=== PATIENT | female | born 1975 | race Two or more races ===

== ENCOUNTER 2016-10-24 12:28 | Emergency (ER) | payer MEDICAID ==
[~2016-10-24] VITALS: Ht 177.8 cm; Wt 162.8 kg
[~2016-10-24 12:28] MED LIST: AML5T PO; BENA40TA2 PO; GABA300C8 PO; MET50T PO; METF-316 PO; OMEP20CA5 PO
[2016-10-24] MEDS ORDERED: ACETAMINOPHEN 325 MG TAB PO ONE ×2 (15:57→16:00)
[2016-10-24 16:45] LABS: Basophils # (auto) 0.1 uL; Basophils % (auto) 0.5 % (0.0-2.0); DEFINITIVE VIEW TRANSMISSION; Eosinophils # (auto) 0.1 uL; Eosinophils % (auto) 0.6 % (0.0-7.0); Hematocrit 41.2 % (36.0-46.0); Hemoglobin 12.7 g/dL (12.2-16.2); Lymphocytes # (auto) 2.2 uL; Mean Corpuscular Hemoglobin 23.2 pg (28.0-32.0); Mean Corpuscular Hgb Conc. 30.8 g/dL (32.0-36.0); Mean Corpuscular Volume 75.3 fL (80.0-100.0); Mean Platelet Volume 9.6 fL (7.4-10.4); Monocytes # (auto) 0.5 uL; Monocytes % (auto) 4.2 % (0.0-12.0); Neutrophils # (auto) 9.3 uL; Neutrophils % (auto) 76.7 % (37.0-80.0); Platelet Count (auto) 247 10^3/uL (140-450); Red Cell Distribution Width 17.9 % (11.6-16.0); White Blood Cell 12.2 10^3/uL (4.4-10.8)
[2016-10-24 17:00] LABS: INR 1.02 (0.9-1.15); Partial Thromboplastin Time 24.9 sec (22.64-33.71); Prothrombin Time 10.5 sec (9.37-12.3)
[2016-10-24 17:02] LABS: Urine Bilirubin Negative (Negative); Urine Blood Negative /uL (Negative); Urine Color Yellow (Yellow); Urine Ketone Negative (Negative); Urine Nitrite Negative (Negative); Urine RBC <1 /hpf (0 - 4); Urine Squamous Epithelial Cell FEW /hpf (<5); Urine Urobilinogen Normal (Negative); Urine pH 6.5 (5.0-8.0)
[2016-10-24 17:04] LABS: Urine Glucose 4+ mg/dL (Normal)
[2016-10-24 17:05] LABS: Albumin 3.2 g/dL (3.4-5.0); BUN/Creatinine Ratio 7.5; Calcium 8.2 mg/dL (8.5-10.1)
[2016-10-24 17:07] LABS: Bilirubin, Total 0.3 mg/dL (0.2-1.0)
[2016-10-24 20:13] VITALS: BP 138/88
== END 2016-10-24 20:59 | disposition home or self-care (01) ==
LOC: EDBD 12:28 → ER 12:34
DX: G40.909 Epilepsy, unspecified, not intractable, without status epilepticus (principal); E11.65 Type 2 diabetes mellitus with hyperglycemia; I10 Essential (primary) hypertension; F17.210 Nicotine dependence, cigarettes, uncomplicated
CPT/HCPCS: 36415; 71010; 80053; 81001; 81025; 83735; 85025; 85610; 85730; 94761

== ENCOUNTER 2017-07-09 16:29 | Emergency (ER) | payer MEDICAID ==
[~2017-07-09] VITALS: Ht 175.3 cm; Wt 158.8 kg
[~2017-07-09 16:29] MED LIST changes: -BENA40TA2 PO; +BENA40TA7 PO; +GABA-497 PO; -GABA300C8 PO; -METF-316 PO; +METF-372 PO; -OMEP20CA5 PO; +OMEP20CA74 PO
[2017-07-09 16:56] LABS: Basophils # (auto) 0.1 uL; Eosinophils # (auto) 0.2 uL; Eosinophils % (auto) 1.7 % (0.0-7.0); Hemoglobin 13.6 g/dL (12.2-16.2); Mean Corpuscular Hemoglobin 23.6 pg (28.0-32.0); Monocytes # (auto) 0.7 uL; White Blood Cell 13.4 10^3/uL (4.4-10.8)
[2017-07-09 16:57] LABS: Basophils % (auto) 0.6 % (0.0-2.0); Hematocrit 43.2 % (36.0-46.0); Lymphocytes # (auto) 2.7 uL; Lymphocytes % (auto) 20.2 % (10.0-50.0); Mean Corpuscular Hgb Conc. 31.5 g/dL (32.0-36.0); Mean Platelet Volume 8.4 fL (6.9-10.8); Monocytes % (auto) 5.3 % (0.0-12.0); Neutrophils # (auto) 9.7 uL; Neutrophils % (auto) 72.2 % (37.0-80.0); Nucleated Red Blood Cells % 0.1 %; Platelet Count (auto) 297 10^3/uL (140-450); Red Cell Distribution Width 18.4 % (11.8-14.3)
[2017-07-09 17:18] LABS: Albumin 3.4 g/dL (3.4-5.0); BUN/Creatinine Ratio 12.4; Bilirubin, Total 0.2 mg/dL (0.2-1.0); Calcium 8.6 mg/dL (8.5-10.1); Potassium 4.1 mmol/L (3.5-5.1); Total Protein 7.8 g/dL (6.4-8.2)
[2017-07-09 18:35] LABS: Urine Bilirubin Negative (Negative); Urine Blood 2+ /uL (Negative); Urine Color Yellow (Yellow); Urine Glucose Normal (Normal); Urine Ketone 1+ (Negative); Urine Mucus FEW (None Seen); Urine Nitrite Negative (Negative); Urine RBC 76 /hpf (0 - 4); Urine Squamous Epithelial Cell FEW /hpf (<5); Urine Urobilinogen Normal (Negative)
[2017-07-09] MEDS ORDERED: MORPHINE SULF INJ 2 MG/ML SYRINGE 1ML IV ONE (19:15)
[2017-07-09] MEDS ORDERED: SODIUM CHLORIDE 0.9% 1,000 ML IV ONE (19:15)
[2017-07-09] MEDS ORDERED: ONDANSETRON HCL 4 MG/2 ML VIAL IV ONE (19:15)
[2017-07-09 21:00] VITALS: BP 104/56
== END 2017-07-09 22:28 | disposition home or self-care (01) ==
LOC: EDUNIT# 16:29 → ER 16:40 → EDBD 16:40 → EDSEX 16:40 → ER 22:28
DX: G40.909 Epilepsy, unspecified, not intractable, without status epilepticus (principal); N39.0 Urinary tract infection, site not specified; J32.9 Chronic sinusitis, unspecified; F17.210 Nicotine dependence, cigarettes, uncomplicated; E11.9 Type 2 diabetes mellitus without complications; I10 Essential (primary) hypertension; E66.01 Morbid (severe) obesity due to excess calories; Z68.43 Body mass index [BMI] 50.0-59.9, adult
CPT/HCPCS: 36415; 70450; 80053; 81001; 81025; 85025; 96361; 96374; 96375; 99285; J2270; J2405; J7030

== ENCOUNTER 2018-05-22 13:00 | Emergency (ER) | payer MEDICAID ==
[~2018-05-22] VITALS: Ht 177.8 cm; Wt 157.9 kg
[~2018-05-22 13:00] MED LIST changes: -GABA-497 PO; +GABA300C10 PO
[2018-05-22 13:28] VITALS: BP 141/77
[2018-05-22] MEDS ORDERED: NAPROXEN 500 MG TAB PO ONE (15:00)
[2018-05-22] MEDS ORDERED: KETOROLAC TROMETH 60MG/2ML VIAL IM ONE (15:00)
== END 2018-05-22 15:52 | disposition home or self-care (01) ==
LOC: ER 13:02
DX: R51 Headache (principal); E11.9 Type 2 diabetes mellitus without complications; I10 Essential (primary) hypertension; F17.210 Nicotine dependence, cigarettes, uncomplicated
CPT/HCPCS: 96372; 99283; J1885